=== PATIENT | male | born 1995 | race African-American/Black ===

== ENCOUNTER 2024-03-26 09:19 | Emergency (ER) | payer OTHER ==
[2024-03-26 09:28] VITALS: BP 136/67; O2SAT 100
--- NOTE | 2024-03-26 09:31 | ED Physician Documentation ---
PD HPI LOWER EXT INJURY - Stated complaint Stated Complaint: LT ANKLE PX - Chief complaint Chief Complaint: Ext Problem - History obtained from History obtained from: Patient - History of Present Illness PD HPI LOW EXT INJURY LOCATION: Left, Ankle Type of injury: Twist (while playing basketball with friends.) Timing - onset: How many days ago (2) Timing - duration: Days (2) Timing - details: Abrupt onset, Still present (he is most uncomfortable having to do prolonged march walking at work, and wearing regulation boots that have no ankle support.) Improved by: Rest Worsened by: Moving, Palpating (anterolateral aspect.) Associated symptoms: Swelling. No: Weakness, Numbness Review of Systems Neurologic: denies: Focal weakness, Numbness PD PAST MEDICAL HISTORY - Past Medical History Past Medical History: No - Past Surgical History Past Surgical History: No - Present Medications Home Medications: Ambulatory Orders Medication Instructions Recorded Confirmed No Known Home Medications 03/26/24 03/26/24 - Allergies Allergies/Adverse Reactions: Allergies Allergy/AdvReac Type Severity Reaction Status Date / Time No Known Drug Allergies Allergy Verified 03/26/24 09:28 - Social History Does the pt smoke?: No Smoking Status: Never smoker Does the pt drink ETOH?: No Does the pt have substance abuse?: No - Immunizations Immunizations are current?: Yes PD ED PE NORMAL - Vitals Vital signs reviewed: Yes - General General: Alert and oriented X 3, No acute distress, Well developed/nourished - Derm Derm: Normal color, Warm and dry - Extremities Extremities: Other (left ankle tender mainly at lateral aspect and also some to lower achilles area, but achiless is firm and intact. Good plantar flexion strength without pian. Hurting mainly with direct weight bearing and step off portion of gait. ) - Neuro Neuro: No motor deficit, No sensory deficit Results - Vitals Vitals: Oxygen O2 Source Room air - Rads (name of study) left ankle Relevant Findings:: Prelim report reviewed, EMP independent interpretation of test (no fracture) PD Medical Decision Making - ED course Complexity details: reviewed results (no fractures; injury c/w inversion sprain. ), considered differential (sprain mechanism and xray done without fracture seen. Can place aircast splint and since will not fit into boot, then note to give diandra about good and wlking/stnading. ), d/w patient Departure - Departure Disposition: Home, Self Care Clinical Impression: Ankle sprain Qualifiers: Encounter type: initial encounter Involved ligament of ankle: unspecified ligament Laterality: left Qualified Code(s): S93.402A - Sprain of unspecified ligament of left ankle, initial encounter Condition: Stable Record reviewed to determine appropriate education?: Yes Instructions: ED Sprain Ankle Follow-Up: NIK Herrera [Provider Group] Comments: Your x-ray appears normal which means no signs of fracture or bony abnormalities. The majority of injuries in the ankle are soft tissue such as ligaments and muscles. For your ankle sprain, it would heal best if you use the ankle brace when up and around for the next 4 to 5 days. These will not fit in your normal boots so regular street shoes or such will need to be used. Minimize the amount of consistent walking and standing and working out over the next 5 days. This should allow better healing of the ligaments. You could use some ibuprofen 600 to 800 mg 3 times daily for the next several days to week as needed for pains. I would anticipate this healing up fairly readily in the short-term, such as over the next week or so. [facility] for [facility] if not improved in that timeframe or if needing further act activity restrictions. Sometimes an ankle sprain can even last 3 to 4 weeks to fully heal up. Forms: PCP List, Activity restrictions Discharge Date/Time: 03/26/24 10:34
[2024-03-26] MEDS: IBUPROFEN 800 MG TABLET PO STA (10:03)
--- NOTE | 2024-03-26 10:36 | XRAY Report ---
PROCEDURE: Ankle 3+V LT INDICATIONS: ankle injury in sports 2 days ago TECHNIQUE: 3 views of the ankle were acquired. COMPARISON: None. FINDINGS: Bones: No fractures or dislocations. Ankle mortise is normally aligned. No suspicious bony lesions . Base of fifth metatarsal not well evaluated Soft tissues: No tibiotalar joint effusion. Achilles tendon appears normal. IMPRESSION: No acute bony abnormality. Comment: The base of the fifth metatarsal is not visualized. If there is point tenderness in this loc ation, consider foot films. Reviewed by: Zachary Guadarrama MD on 03/26/2024 10:35 AM PDT Approved by: Zachary Guadarrama MD on 03/26/2024 10:35 AM PDT Station ID: [id number]
== END 2024-03-26 10:34 | disposition home or self-care (01) ==
LOC: ED 09:19
DX: S93.402A Sprain of unspecified ligament of left ankle, initial encounter (principal); X50.1XXA Overexertion from prolonged static or awkward postures, initial encounter; Y93.67 Activity, basketball
CPT/HCPCS: 73610; 99283; A9270